=== PATIENT | male | born 1985 | race Caucasian/White ===

== ENCOUNTER 2022-03-21 17:24 | Inpatient (IN) | payer OTHER ==
[2022-03-21] VITALS (8 sets, daily range): BP systolic 123–145; BP diastolic 64–84
[~2022-03-21] VITALS: Ht 172.7 cm; Wt 122.7 kg
[2022-03-21 18:26] LABS: CLARITY,URINE CLEAR (Clear); COLOR,URINE YELLOW (Yellow); GLUCOSE, URINE NEGATIVE (Neg); KETONES,URINE NEGATIVE (Neg); LEUKOCYTE ESTERASE ,URINE NEGATIVE (Neg); NITRITES, URINE NEGATIVE (Neg); OCCULT BLOOD,URINE SMALL (Neg); PROTEIN,URINE NEGATIVE (Neg); UROBILINOGEN,URINE 0.2 E.U/dL (0.2-1.0)
[2022-03-21 18:30] LABS: BASOPHILS # (AUTO) 0.2 X10'3 (0-0.2); BASOPHILS % (AUTO) 1.4 % (0-1); EOSINOPHILS # (AUTO) 0.1 X10'3 (0-0.9); EOSINOPHILS % (AUTO) 0.8 % (0-6); HEMATOCRIT 45.9 % (42.0-52.0); HEMOGLOBIN 15.7 g/dl (14.0-17.9); LYMPHOCYTES # (AUTO) 1.4 X10'3 (1.1-4.8); LYMPHOCYTES % (AUTO) 8.1 % (21-51); MEAN CORPUSCULAR HEMOGLOBIN 29.1 PG (27.0-31.0); MEAN CORPUSCULAR HGB CONC 34.2 g/dL (33.0-36.5); MEAN CORPUSCULAR VOLUME 85.3 FL (78-98); MEAN PLATELET VOLUME 9.4 FL (7.4-10.4); MONOCYTES # (AUTO) 0.5 X10'3 (0-0.9); MONOCYTES % (AUTO) 2.8 % (2-12); NEUTROPHILS # (AUTO) 14.5 X10'3 (1.8-7.7); NEUTROPHILS % (AUTO) 86.9 % (42-75); PLATELET COUNT 248 X10'3 (140-440); RED BLOOD COUNT 5.38 X10'6 (4.70-6.10); RED CELL DISTRIBUTION WIDTH 13.1 % (11.5-14.5); WHITE BLOOD COUNT 16.7 X10'3 (4.5-11.0)
[2022-03-21 18:42] LABS: UA COLLECTION TYPE VOIDED
[2022-03-21 18:43] LABS: BACTERIA,URINE NONE SEEN /HPF (Neg); RBC,URINE 0-2 /HPF (0-2); SQUAMOUS EPITHELIAL CELL,UR NONE SEEN /LPF (FEW); WBC,URINE NONE SEEN /HPF (0-4)
[2022-03-21 18:44] LABS: ALANINE AMINOTRANSFERASE 44 U/L (12-78); ALBUMIN 4.5 G/DL (3.4-5.0); ALBUMIN/GLOBULIN RATIO 1.3 (1.1-1.5); ALKALINE PHOSPHATASE 80 IU/L (46-116); ANION GAP 6 (8-16); ASPARTATE AMINO TRANSFERASE 23 U/L (10-37); BILIRUBIN,TOTAL 0.6 MG/DL (0.1-1.0); BLOOD UREA NITROGEN 12 MG/DL (7-18); BUN/CREATININE RATIO 11.4 (5.4-32.0); CALCIUM 10.2 MG/DL (8.5-10.1); CHLORIDE 101 MMOL/L (99-107); CREATININE 1.05 MG/DL (0.60-1.10); GLUCOSE 141 MG/DL (70-104); LIPASE 57 U/L (73-393); POTASSIUM 4.4 MMOL/L (3.5-5.1); SODIUM 136 MMOL/L (135-145); TOTAL CARBON DIOXIDE 29.5 MMOL/L (24-32); TOTAL PROTEIN 8.1 G/DL (6.4-8.2); eGFR 80 ML/MIN
[2022-03-21] MEDS ORDERED: piperacillin/tazo 4.5gm/100ml 100 ML IV STA (18:53)
[2022-03-21] MEDS ORDERED: ondansetron/PF 4mg/2ml inj IV ONE (19:45)
[2022-03-21] MEDS ORDERED: morphine 10mg/ml inj. IV ONE (19:45)
[2022-03-21] MEDS ORDERED: normal saline 1000ML IV soln IVB ONE (19:45)
[2022-03-21] MEDS ORDERED: ondansetron/PF 4mg/2ml inj IV PRN ×2 (20:00→20:45)
[2022-03-21] MEDS ORDERED: ringers solution, lacted 1,000 ML IV SCH (20:00)
[2022-03-21] MEDS ORDERED: hydrALAZINE 20mg/ml inj. IV PRN (20:00)
[2022-03-21] MEDS ORDERED: labetalol 20mg/4ml (5mg/ml) syringe IV PRN (20:00)
[2022-03-21] MEDS ORDERED: morphine 2 MG/ML inj. syringe IV PRN ×3 (20:00→20:45)
[2022-03-21] MEDS ORDERED: fentaNYL/PF 50MCG/1 ML 2ML syringe IV PRN ×2 (20:00)
[2022-03-21] MEDS ORDERED: LIDOcaine 1% 30ml preserv. free vial ONE (20:15)
[2022-03-21] MEDS ORDERED: BUPIVAcaine/PF 2.5 mg/ml (0.25%) 30ml vial ONE (20:15)
[2022-03-21] MEDS ORDERED: propofol inj 20 ML IV ONE ×2 (20:24)
[2022-03-21] MEDS ORDERED: fentaNYL/PF 50MCG/1 ML 2ML syringe ONE (20:24)
[2022-03-21] MEDS ORDERED: midazolam 1 mg/ML 2ml injection ONE (20:24)
[2022-03-21] MEDS ORDERED: rocuronium 10mg/ml inj IV ONE (20:25)
[2022-03-21] MEDS ORDERED: LIDOcaine 2% (20mg/ml) 5ml vial ONE (20:25)
[2022-03-21] MEDS ORDERED: ondansetron/PF 4mg/2ml inj ONE (20:25)
[2022-03-21 20:27] LABS: LARGE PLATELETS FEW; PLATELET ESTIMATE NORMAL; TOTAL CELLS COUNTED 100; TOXIC GRANULATION 1+
[2022-03-21] MEDS ORDERED: bisacodyl 10mg suppository rectal RC PRN (20:45)
[2022-03-21] MEDS ORDERED: diphenhydrAMINE 50 mg/ml inj IV PRN (20:45)
[2022-03-21] MEDS ORDERED: acetaminophen 325mg tablet PO PRN ×2 (20:45)
[2022-03-21] MEDS ORDERED: HYDROcodone/acetaminophen 5mg/325mg tablet PO PRN (20:45)
[2022-03-21] MEDS ORDERED: HYDROmorphone inj. 0.5 MG/0.5 ML DISP.SYRIN IV PRN (20:45)
[2022-03-21] MEDS ORDERED: ondansetron 4mg rapidly disintigrating tab PO PRN (20:45)
[2022-03-21] MEDS ORDERED: normal saline 1000ml 1,000 ML IV SCH (20:45)
[2022-03-21] MEDS ORDERED: HYDROcodone/acetaminophen 10/325mg tab PO PRN (20:45)
[2022-03-21] MEDS ORDERED: acetaminophen 650mg rectal suppository RC PRN (20:45)
[2022-03-21] MEDS ORDERED: metoclopramide 5 mg/ml inj IV PRN (20:45)
[2022-03-21] MEDS ORDERED: diphenhydrAMINE 25mg capsule PO PRN (20:45)
[2022-03-21] MEDS ORDERED: magnesium hydroxide 30ml (MOM) UD suspension PO PRN (20:45)
[2022-03-21] MEDS ORDERED: mag hydrox/Alum hydrox/simeth 30ml oral suspension PO PRN (20:45)
[2022-03-21] MEDS ORDERED: temazepam 15mg capsule PO PRN (21:00)
[2022-03-21] MEDS ORDERED: naloxone 0.4 mg/ml inj IV PRN (21:55)
[2022-03-21] MEDS ORDERED: oxyCODONE/APAP 5-325mg tablet PO PRN (21:55)
--- NOTE | 2022-03-21 22:10 | NUR ---
Received from OR via , accompanied by Anesthesiologist DR TOLENTINO and report given by Anesthesiolgist. PT IS SLEEPING, OPENS EYES TO VOICE, MOVES EXT X 4, SKIN WARM AND PINK, PIV LEFT AC 20G, SCD'S ON, 4 BA'S TO ABD CD, VSS, NO C/O PAIN.
[2022-03-21] MEDS: morphine 4 MG/ML inj SYRINge IV PRN ×2 (22:29→22:41)
--- NOTE | 2022-03-21 22:40 | NUR ---
Report called to receiving nurse. Transferred via BED Belongings [ HAS ALL PERSONAL BELONGINGS. Special Issues communicated to receiving nurse MAURICE IRVING. PT IS AWAKE, ALERT, ORIENTED, MOVING EXT X 4, PIV PATENT, NAVNEET FLUIDS, SCD'S, MIN PAIN MANAGED WELL WITH MORPHINE IV,BA'S ON ABD CD, AT BS, PT MEETS DISCHARGE CRITERIA.
--- NOTE | 2022-03-21 23:28 | NUR ---
RC'D REPORT AND ASSUMED CARE OF PATIENT WHEN HE ARRIVED ON UNIT AT 2245. IN HOSPITAL BED AND PLACED INTO ROOM 4014B. FREQUENT VITALS INITIATED AFTER PATIENT AMBULATED TO BATHROOM WITH TO VOID. TOLERATED AMBULATION WELL WITHOUT C/O ANY KIND. BACK TO BED, IVF'S FROM RR INFUSING AT 100. STATES PAIN INCREASED SLIGHTLY FROM A 3 TO 5 WITH ACTIVITY BUT IS BETTER AT REST NOW. CALL LIGHT PLACED IN REACH, PATIENT EDUCATED ON HOSPITAL ROUTINES, SPLINTING WITH PILLOW WHEN COUGHING AND EXPECTATIONS FROM THIS STAY. QUESTIONS ANSWERED AND PATIENT RESTING NOW.
[2022-03-22 00:15] VITALS: BP 111/62
[2022-03-22] MEDS: ketorolac trometh. 30mg/ml inj. IV SCH ×2 (00:39→08:29)
[2022-03-22 00:45] VITALS: BP 111/63
[2022-03-22 01:45] VITALS: BP 114/66
[2022-03-22] MEDS: acetaminophen 325mg tablet PO SCH ×2 (02:00→08:00)
[2022-03-22] MEDS ORDERED: NO HOME MEDS (02:10)
[2022-03-22 02:45] VITALS: BP 112/59
[2022-03-22 05:50] LABS: BASOPHILS % (AUTO) 0 % (0-1); EOSINOPHILS % (AUTO) 0 % (0-6); HEMATOCRIT 42.7 % (42.0-52.0); HEMOGLOBIN 14.8 g/dl (14.0-17.9); LYMPHOCYTES # (AUTO) 0.8 X10'3 (1.1-4.8); LYMPHOCYTES % (AUTO) 6.6 % (21-51); MEAN CORPUSCULAR HEMOGLOBIN 29.8 PG (27.0-31.0); MEAN CORPUSCULAR HGB CONC 34.8 g/dL (33.0-36.5); MEAN CORPUSCULAR VOLUME 85.6 FL (78-98); MONOCYTES # (AUTO) 0.1 X10'3 (0-0.9); MONOCYTES % (AUTO) 1.2 % (2-12); NEUTROPHILS # (AUTO) 11.2 X10'3 (1.8-7.7); NEUTROPHILS % (AUTO) 92.2 % (42-75); PLATELET COUNT 228 X10'3 (140-440); RED BLOOD COUNT 4.99 X10'6 (4.70-6.10); RED CELL DISTRIBUTION WIDTH 13.3 % (11.5-14.5); WHITE BLOOD COUNT 12.2 X10'3 (4.5-11.0)
[2022-03-22 06:00] VITALS: BP 106/60
[2022-03-22 06:21] LABS: ALANINE AMINOTRANSFERASE 37 U/L (12-78); ALBUMIN 3.9 G/DL (3.4-5.0); ALBUMIN/GLOBULIN RATIO 1.2 (1.1-1.5); ALKALINE PHOSPHATASE 69 IU/L (46-116); ANION GAP 7 (8-16); ASPARTATE AMINO TRANSFERASE 18 U/L (10-37); BILIRUBIN,TOTAL 0.8 MG/DL (0.1-1.0); BLOOD UREA NITROGEN 11 MG/DL (7-18); BUN/CREATININE RATIO 11.3 (5.4-32.0); CHLORIDE 102 MMOL/L (99-107); CREATININE 0.97 MG/DL (0.60-1.10); GLUCOSE 152 MG/DL (70-104); POTASSIUM 4.6 MMOL/L (3.5-5.1); SODIUM 137 MMOL/L (135-145); TOTAL CARBON DIOXIDE 27.9 MMOL/L (24-32); TOTAL PROTEIN 7.2 G/DL (6.4-8.2); eGFR 88 ML/MIN
--- NOTE | 2022-03-22 06:30 | NUR ---
Problems reprioritized. Patient report given, questions answered & plan of care reviewed with LOUIS HENRY.
--- NOTE | 2022-03-22 06:51 | NUR ---
Patient in room ORTHO 4014. I have received report from MARIA FERNANDA Harley and had the opportunity to ask questions and assume patient care.
[2022-03-22] MEDS ORDERED: enoxaparin 40mg/0.4ml syringe SQ SCH (08:00)
[2022-03-22] MEDS ORDERED: docusate sod 100mg capsule PO SCH (08:00)
[2022-03-22] MEDS ORDERED: pantoprazole 40MG/NS 100ML BAG 100 ML IV SCH (08:00)
[2022-03-22] MEDS ORDERED: PER5325T PO (08:21)
[2022-03-22 10:00] VITALS: BP 106/43
--- NOTE | 2022-03-22 11:56 | NUR ---
Patient discharge home with all belongings. Discharge information was provided and reviewed with patient whom verbalize understanding.
--- NOTE | 2022-03-22 13:41 | NUR ---
DIRECTOR EXTERNAL COMMUNICATIONS documentation: I have reviewed and agree with all interventions, assessments performed and documented by rEin.
== END 2022-03-22 11:23 | disposition home or self-care (01) | DRG 342 ==
LOC: ER 17:24 → ED HOLD 20:44 → ORTHO 4S 21:21
PROVIDERS: ADMIT Family Medicine; ATTEND Family Medicine
PROC: 8E0W4CZ Robotic Assisted Procedure of Trunk Region, Percutaneous Endoscopic Approach (ICD-10-PCS; 2022-03-21)
PROC: 0DTJ4ZZ Resection of Appendix, Percutaneous Endoscopic Approach (ICD-10-PCS; principal; 2022-03-21 21:00)
DX: K35.80 Unspecified acute appendicitis (principal); Z68.41 Body mass index [BMI] 40.0-44.9, adult; E86.0 Dehydration; Z20.822 Contact with and (suspected) exposure to COVID-19; I10 Essential (primary) hypertension; K57.30 Diverticulosis of large intestine without perforation or abscess without bleeding; J45.909 Unspecified asthma, uncomplicated; K38.1 Appendicular concretions; E66.01 Morbid (severe) obesity due to excess calories; F41.9 Anxiety disorder, unspecified; K21.9 Gastro-esophageal reflux disease without esophagitis
CPT/HCPCS: 96365; 96375; 99285; Z7506; Z7508; 36415; 74176; 80053; 81001; 83690; 85007; 85025; 87081; 87811; A4215; A4615; A4618; C9113; G0378; J1170; J1650; J1885; J2250; J2270; J2274; J2405; J2543; J2704; J3010; J3490; J7030; J7120